=== PATIENT | female | born 1965 | race Caucasian/White ===

== ENCOUNTER 2018-01-19 10:20 | Emergency (ER) | payer OTHER ==
[~2018-01-19] VITALS: Ht 172.7 cm; Wt 140.6 kg
[~2018-01-19 10:20] MED LIST: BENTYL20 MG PO; VICODIN 500 MG-1 TAB PO
[2018-01-19 10:23] VITALS: BP 153/84
[2018-01-19] MEDS ORDERED: Motrin,Rufen800 MG PO (13:31)
[2018-01-19] MEDS ORDERED: PERCOCET 10-321 EACH PO (14:07)
== END 2018-01-19 14:38 | disposition home or self-care (01) ==
LOC: ED 10:20
DX: S89.91XA Unspecified injury of right lower leg, initial encounter (principal); Z91.040 Latex allergy status; Z88.0 Allergy status to penicillin; X58.XXXA Exposure to other specified factors, initial encounter; Y93.G3 Activity, cooking and baking; Y92.89 Other specified places as the place of occurrence of the external cause; Y99.8 Other external cause status